=== PATIENT | female | born 1995 | race Caucasian/White ===

== ENCOUNTER 2021-02-07 10:39 | Emergency (ER) | payer MEDICAID ==
[~2021-02-07] VITALS: Ht 165.1 cm; Wt 95.5 kg
[2021-02-07 10:46] VITALS: BP 115/77
[2021-02-07] MEDS ORDERED: bacitracin 15gm ointment TP ONE (10:55)
[2021-02-07] MEDS ORDERED: TETanus/Pertussis (Acell)/Diphther VAC/PF (Tdap-Adult) 0.5ml syringe IMVAC ONE (10:55)
[2021-02-07] MEDS ORDERED: fentaNYL/PF 50MCG/1 ML 2ML syringe IV ONE (10:55)
[2021-02-07] MEDS ORDERED: ondansetron/PF 4mg/2ml inj IV ONE (10:55)
[2021-02-07] MEDS ORDERED: ondansetron 4mg rapidly disintigrating tab PO ONE (11:00)
[2021-02-07] MEDS ORDERED: HYDROcodone/acetaminophen 10/325mg tab PO ONE (11:00)
[2021-02-07] MEDS ORDERED: HYDR-3964 PO (11:03)
[2021-02-07] MEDS ORDERED: ONDA4TAB6 PO (11:03)
[2021-02-07] MEDS ORDERED: ketorolac tromethamine 15mg/ml inj. IM ONE (11:20)
--- NOTE | 2021-02-07 11:41 | NUR ---
Knee immobilizer placed by it technician and crutches given and instructed for use.
== END 2021-02-07 12:03 | disposition home or self-care (01) ==
LOC: ER 10:39
DX: S83.91XA Sprain of unspecified site of right knee, initial encounter (principal); S80.01XA Contusion of right knee, initial encounter; M23.91 Unspecified internal derangement of right knee; G43.909 Migraine, unspecified, not intractable, without status migrainosus; J45.909 Unspecified asthma, uncomplicated; Z88.1 Allergy status to other antibiotic agents; Z79.899 Other long term (current) drug therapy; W10.8XXA Fall (on) (from) other stairs and steps, initial encounter; Y93.89 Activity, other specified; Y92.89 Other specified places as the place of occurrence of the external cause; Y99.8 Other external cause status
CPT/HCPCS: 29530; 73564; 73590; 96372; 99284; J1885; 90715

== ENCOUNTER 2021-04-10 13:32 | Emergency (ER) | payer MEDICAID ==
[~2021-04-10] VITALS: Ht 170.2 cm; Wt 86.4 kg
[~2021-04-10 13:32] MED LIST: ONDA4TAB6 PO
[2021-04-10 14:09] VITALS: BP 118/70
[2021-04-10] MEDS ORDERED: METR500T PO (15:13)
[2021-04-10] MEDS ORDERED: LEVO750T46 PO (15:13)
[2021-04-10] MEDS ORDERED: LIDO20SO16 PO (15:14)
[2021-04-10] MEDS ORDERED: ketorolac trometh. 30mg/ml inj. IM ONE (15:15)
== END 2021-04-10 15:49 | disposition home or self-care (01) ==
LOC: ER 13:33
DX: S02.5XXA Fracture of tooth (traumatic), initial encounter for closed fracture (principal); J45.909 Unspecified asthma, uncomplicated; Z88.1 Allergy status to other antibiotic agents; Z79.899 Other long term (current) drug therapy; X58.XXXA Exposure to other specified factors, initial encounter; Y93.89 Activity, other specified; Y92.89 Other specified places as the place of occurrence of the external cause; Y99.8 Other external cause status
CPT/HCPCS: 99283

== ENCOUNTER 2023-05-21 15:44 | Emergency (ER) | payer MEDICAID ==
[~2023-05-21] VITALS: Ht 167.6 cm; Wt 160.0 kg
[~2023-05-21 15:44] MED LIST changes: +LIDO20SO16 PO
[2023-05-21 15:45] VITALS: TEMP 97.3
[2023-05-21 16:20] LABS: BASOPHILS # (AUTO) 0.1 X10'3 (0-0.2); BASOPHILS % (AUTO) 0.6 % (0-1); EOSINOPHILS # (AUTO) 0.2 X10'3 (0-0.9); EOSINOPHILS % (AUTO) 1.9 % (0-6); HEMATOCRIT 44.6 % (35.0-45.0); HEMOGLOBIN 15.1 g/dl (12.0-16.0); LYMPHOCYTES # (AUTO) 2.1 X10'3 (1.1-4.8); LYMPHOCYTES % (AUTO) 21.6 % (21-51); MEAN CORPUSCULAR HEMOGLOBIN 29.7 PG (27.0-31.0); MEAN CORPUSCULAR HGB CONC 33.9 g/dL (33.0-36.5); MEAN CORPUSCULAR VOLUME 87.8 FL (78-98); MEAN PLATELET VOLUME 9.3 FL (7.4-10.4); MONOCYTES # (AUTO) 0.5 X10'3 (0-0.9); MONOCYTES % (AUTO) 5.4 % (2-12); NEUTROPHILS # (AUTO) 6.9 X10'3 (1.8-7.7); NEUTROPHILS % (AUTO) 70.5 % (42-75); PLATELET COUNT 298 X10'3 (140-440); RED BLOOD COUNT 5.08 X10'6 (4.20-5.60); RED CELL DISTRIBUTION WIDTH 13.8 % (11.5-14.5); WHITE BLOOD COUNT 9.7 X10'3 (4.5-11.0)
[2023-05-21] MEDS ORDERED: normal saline 1000ML IV soln IVB ONE (16:20)
[2023-05-21 16:28] LABS: ALANINE AMINOTRANSFERASE 7 U/L (12-78); ALBUMIN 4.2 G/DL (3.4-5.0); ALBUMIN/GLOBULIN RATIO 0.9 (1.1-1.5); ALKALINE PHOSPHATASE 50 IU/L (46-116); ANION GAP 13 (8-16); ASPARTATE AMINO TRANSFERASE 21 U/L (10-37); BILIRUBIN,TOTAL 0.8 MG/DL (0.1-1.0); BLOOD UREA NITROGEN 10 MG/DL (7-18); BUN/CREATININE RATIO 9.3 (10.0-20.0); CHLORIDE 101 MMOL/L (99-107); CREATININE 1.07 MG/DL (0.40-0.90); GLUCOSE 137 MG/DL (70-104); POTASSIUM 3.4 MMOL/L (3.5-5.1); SODIUM 136 MMOL/L (135-145); TOTAL CARBON DIOXIDE 21.7 MMOL/L (24-32); eCRCL 75 ML/MIN; eGFR 62 ML/MIN
[2023-05-21 16:34] LABS: LIPASE < 50 U/L (73-393); PRO BRAIN NATRIURETIC PEPTIDE 79 PG/ML (0-125)
[2023-05-21] MEDS ORDERED: proCHLORperazine 10 MG/2 ml inj IV ONE ×2 (17:20)
[2023-05-21] MEDS ORDERED: ringers solution, lacted 1,000 ML IV ONE (17:20)
[2023-05-21 19:10] LABS: ETHANOL < 10 MG/DL (<10); MAGNESIUM 1.8 MG/DL (1.5-2.4)
[2023-05-21] MEDS ORDERED: ketorolac trometh. 30mg/ml inj. IV ONE (19:10)
--- NOTE | 2023-05-21 19:18 | NUR ---
attempted straight cath with only a few drops. will try again
[2023-05-21 19:31] VITALS: RESP 16
[2023-05-21 20:08] VITALS: BP 104/66; PULSE 51; O2SAT 99
[2023-05-21 20:31] LABS: URINE HCG NEGATIVE (NEG)
[2023-05-21 20:34] LABS: BILIRUBIN,URINE NEGATIVE (Neg); CLARITY,URINE SLIGHTLY CLOUDY (Clear); COLOR,URINE YELLOW (Yellow); GLUCOSE, URINE NEGATIVE (Neg); KETONES,URINE >=80 mg/dl (Neg); LEUKOCYTE ESTERASE ,URINE NEGATIVE (Neg); NITRITES, URINE NEGATIVE (Neg); OCCULT BLOOD,URINE NEGATIVE (Neg); PROTEIN,URINE TRACE mg/dl (Neg); UROBILINOGEN,URINE 0.2 E.U/dL (0.2-1.0)
[2023-05-21 20:50] LABS: URINE AMPHETAMINE SCREEN NEGATIVE (Neg); URINE BARBITUATE SCREEN NEGATIVE (Neg); URINE BENZODIAZEPINES SCREEN NEGATIVE (Neg); URINE CANNABINOID SCREEN POSITIVE (Neg); URINE COCAINE SCREEN NEGATIVE (Neg); URINE METHADONE SCREEN NEGATIVE (Neg); URINE OPIATE SCREEN NEGATIVE (Neg); URINE PHENCYCLIDINE SCREEN NEGATIVE (Neg)
[2023-05-21 20:51] LABS: UA COLLECTION TYPE OTHER
--- NOTE | 2023-05-21 20:54 | NUR ---
pt resting comfortable with mom at bs
[2023-05-21 20:58] LABS: BACTERIA,URINE 3+ /HPF (Neg); MUCUS STRANDS MANY /LPF (Neg); RBC,URINE NONE SEEN /HPF (0-2); SQUAMOUS EPITHELIAL CELL,UR MANY /LPF (FEW); WBC,URINE 0-4 /HPF (0-4)
[2023-05-21] MEDS ORDERED: PROC25SU31 RC (21:34)
== END 2023-05-21 21:52 | disposition home or self-care (01) ==
LOC: ER 15:44
DX: R11.2 Nausea with vomiting, unspecified (principal)
CPT/HCPCS: 36415; 80053; 80305; 80320; 81001; 81025; 82948; 83690; 83735; 83880; 84484; 85025; 87088; 93005; 96374; 96375; 99284; J0780; J1885; J7030; J7120; A4353

== ENCOUNTER 2024-12-24 20:26 | Emergency (ER) | payer MEDICAID ==
[~2024-12-24] VITALS: Ht 167.6 cm; Wt 77.3 kg
[2024-12-24 20:27] VITALS: BP 136/88; PULSE 73; O2SAT 98
[2024-12-24] MEDS: HYDROcodone/acetaminophen 5mg/325mg tablet PO ONE (20:50)
[2024-12-24 20:51] VITALS: RESP 17
[2024-12-24] MEDS: ketorolac trometh 15mg/ml vial 15 MG/ML ML IM ONE (20:51)
[2024-12-24] MEDS ORDERED: HYDR-3965 PO (22:51)
[2024-12-24 23:09] VITALS: TEMP 98.7
== END 2024-12-24 23:11 | disposition home or self-care (01) ==
LOC: ER 20:27
DX: T21.02XA Burn of unspecified degree of abdominal wall, initial encounter (principal); J45.909 Unspecified asthma, uncomplicated; Z88.0 Allergy status to penicillin; Z88.1 Allergy status to other antibiotic agents; Z88.8 Allergy status to other drugs, medicaments and biological substances; X10.2XXA Contact with fats and cooking oils, initial encounter; Y93.G3 Activity, cooking and baking; Y92.89 Other specified places as the place of occurrence of the external cause; Y99.8 Other external cause status
CPT/HCPCS: 96372; 99283; J1885